=== PATIENT | female | born 1975 | race African-American/Black ===

== ENCOUNTER 2018-09-13 03:14 | Emergency (ER) | payer OTHER ==
[~2018-09-13] VITALS: Ht 165.1 cm; Wt 52.2 kg
--- NOTE | ~2018-09-13 | EKG ---
[place] [address] [email or web address] [employer] [place] [address] ELECTROCARDIOGRAM REPORT Name: HANS OSMAN Room #: [facility]#: [id number] Admission: 09/13/18 Attend Phys: Discharge: 09/13/18 Date of : 75 Report #: [id number] THIS REPORT FOR: //name// [facility] ED Test Date: 2018-09-13 Test Time: 03:46:52 Pat Name: HANS OSMAN Department: Room: Gender: F Senior Care Provider: MONISHA : 1975 Requested By: Chun Burris Order Number: [id number] MD: Richard Martinez Measurements Intervals [place] Rate: 88 P: 73 UT: 152 QRS: 53 QRSD: 83 T: 32 QT: 336 QTc: 407 Interpretive Statements Sinus rhythm No significant abnormality Compared to ECG 10/06/2007 11:39:21 No significant changes Electronically Signed On 09-13-2018 13:55:45 FILTER CHANGER by Richard Martinez [email or web address] <ELECTRONICALLY SIGNED> By: Richard Martinez MD, [facility] 09/13/18 [id number] Richard Martinez MD, FACC /EPI
[2018-09-13] MEDS ORDERED: IBUPROFEN 400400 M2 PO (03:38)
[2018-09-13 03:47] LABS: URINE BILIRUBIN NEGATIVE (Negative); URINE BLOOD 2+ (Negative); URINE CLARITY CLEAR; URINE COLOR YELLOW; URINE GLUCOSE-RANDOM* NEGATIVE (Negative); URINE KETONES NEGATIVE (Negative); URINE LEUKOCYTES-REFLEX NEGATIVE (Negative); URINE NITRITE-REFLEX NEGATIVE (Negative); URINE PROTEIN (DIPSTICK) NEGATIVE (Negative); URINE UROBILINOGEN 0.2 E.U./dl (0.2-1.0)
[2018-09-13 03:48] LABS: CASTS None Seen /LPF (None Seen); MUCUS 0-3 Light strn/LPF (None Seen); SQUAMOUS 4-10 Moderate /LPF (0-3); URINE WBC-REFLEX 0-5 Rare /HPF (0-5)
[2018-09-13 03:49] LABS: BACTERIA-REFLEX None Seen /HPF (None Seen); CRYSTALS None Seen /LPF (None Seen); URINE RBC 0-2 Rare /HPF (0-2)
[2018-09-13 04:16] LABS: ABSOLUTE NEUTROPHILS 5.5 thou/uL (1.4-8.2); BASOPHILS 0.6 % (0.0-2.0); EOSINOPHILS 1.6 % (0.0-3.0); HEMATOCRIT 40.7 % (37.0-47.0); HEMOGLOBIN 13.4 gm/dL (12.0-15.0); LYMPHOCYTES 23.8 % (24.0-44.0); MCH 30.5 pg (26.0-34.0); MCHC 32.9 g/dL (28.0-37.0); MCV 92.6 fL (80.0-100.0); MONOCYTES 8.2 % (1.0-8.0); PLATELET COUNT 231 thou/uL (150-400); POLYS 65.8 % (36.0-66.0); RBC 4.39 mil/uL (4.20-5.00); WBC 8.4 thou/uL (4.0-11.0)
[2018-09-13 04:28] LABS: ANION GAP 8 mmol/L (7-16); BUN 8 mg/dL (7-18); CALCIUM 8.9 mg/dL (8.5-10.1); CHLORIDE 104 mmol/L (98-107); CO2 28 mmol/L (21-32); GLUCOSE 71 mg/dL (74-106); POTASSIUM 3.8 mmol/L (3.5-5.1); SODIUM 140 mmol/L (136-145)
[2018-09-13 04:36] LABS: ALBUMIN 4.2 g/dL (3.4-5.0); LIPASE 177 U/L (73-393); SGOT 15 U/L (15-37); SGPT 21 U/L (30-65); TOTAL BILIRUBIN 0.6 mg/dL (<0.1-1.0); TOTAL PROTEIN 8.1 g/dL (6.4-8.2); TROPONIN-I <0.06 ng/mL (<0.06)
[2018-09-13] MEDS ORDERED: NAPROXEN375 MG PO (05:29)
[2018-09-13] MEDS ORDERED: NORFLEX100 MG PO (05:29)
[2018-09-13] MEDS ORDERED: ZOFRAN ODT4 MG DISSOLVE (05:29)
[2018-09-13 05:40] VITALS: BP 93/66
== END 2018-09-13 05:41 | disposition home or self-care (01) ==
LOC: ER 03:14
PROVIDERS: Emergency Medicine
DX: M43.6 Torticollis (principal); M26.609 Unspecified temporomandibular joint disorder, unspecified side; R11.0 Nausea

== ENCOUNTER 2021-01-09 16:45 | Emergency (ER) | payer BC ==
[~2021-01-09] VITALS: Ht 165.1 cm; Wt 56.7 kg
[~2021-01-09 16:45] MED LIST: IBUPROFEN 400400 M2 PO; NAPROXEN375 MG PO; NORFLEX100 MG PO; ZOFRAN ODT4 MG DISSOLVE
[2021-01-09 16:57] VITALS: BP 145/95
[2021-01-09] MEDS ORDERED: AUGMENTIN 875-1 EACH PO (17:19)
== END 2021-01-09 17:30 | disposition home or self-care (01) ==
LOC: ER 16:45
DX: S71.112A Laceration without foreign body, left thigh, initial encounter (principal); W54.0XXA Bitten by dog, initial encounter; Y93.89 Activity, other specified; Y92.89 Other specified places as the place of occurrence of the external cause; Y99.9 Unspecified external cause status